=== PATIENT | female | born 1940 | race Caucasian/White ===

== ENCOUNTER 2017-01-04 10:52 | Emergency (ER) | payer MEDICARE, OTHER ==
[2017-01-04 12:16] LABS: BASOPHIL 0.3 % (0-2); EOSINOPHIL 5.7 % (0-7); HCT 42.7 % (37.0-47.0); LYMPHOCYTE 14.1 % (15-48); MCH 28.8 pg (25.0-31.0); MCHC 32.8 g/dL (32.0-36.0); MCV 87.9 fL (78.0-100.0); MONOCYTE 9.1 % (0-12); MPV 11.1 fL (6.0-9.5); NEUTROPHIL 70.8 % (41-80); PLT 234 K/uL (150-400); RBC 4.86 M/uL (4.20-5.40); RDW 14.5 % (11.5-14.0); WBC 7.4 K/uL (4.0-10.5)
[2017-01-04 12:25] LABS: ALBUMIN 3.9 g/dL (3.4-4.8); BILIRUBIN - TOTAL 0.6 mg/dL (0.1-1.0); CREATININE 0.6 mg/dL (0.5-1.0); GLOBULIN (CALCULATION) 3.9 g/dL (2.2-4.2); POTASSIUM 3.7 mmol/L (3.5-5.1); TOTAL PROTEIN 7.8 g/dL (6.4-8.3)
== END 2017-01-04 15:00 | disposition home or self-care (01) ==
LOC: FER 10:52
PROVIDERS: Emergency Medicine
DX: K86.2 Cyst of pancreas (principal); R07.81 Pleurodynia; J44.9 Chronic obstructive pulmonary disease, unspecified; Z86.711 Personal history of pulmonary embolism; Z79.52 Long term (current) use of systemic steroids; Z79.01 Long term (current) use of anticoagulants; Z79.899 Other long term (current) drug therapy
CPT/HCPCS: 36415; 80053; 82150; 83690; 85025; 93005; J2175; Q9967

== ENCOUNTER 2017-01-11 13:11 | Emergency (ER) | payer MEDICARE, OTHER ==
[2017-01-11 14:49] LABS: INR 1.32 (0.9-1.2); PROTHROMBIN TIME 15.9 SECONDS (11.7-14.0); PTT 27.5 SECONDS (23.2-31.4)
[2017-01-11 14:54] LABS: BILIRUBIN NEGATIVE (NEGATIVE); BLOOD NEGATIVE Ery/uL (NEGATIVE); CLARITY CLEAR (CLEAR); COLOR YELLOW (YELLOW); GLUCOSE (U) NORMAL (NORMAL); KETONE (U) NEGATIVE (NEGATIVE); LEUKOCYTES TRACE Leu/uL (NEGATIVE); NITRITE NEGATIVE (NEGATIVE); PROTEIN NEGATIVE (NEGATIVE); SPECIFIC GRAVITY <=1.005 (1.001-1.030); UROBILINOGEN 0.2 mg/dL (0.2-1.0)
[2017-01-11 14:55] LABS: BASOPHIL 0.5 % (0-2); EOSINOPHIL 5.3 % (0-7); HCT 40.8 % (37.0-47.0); HGB 13.6 g/dl (12.5-16.0); LYMPHOCYTE 9.3 % (15-48); MCH 29.3 pg (25.0-31.0); MCHC 33.3 g/dL (32.0-36.0); MCV 87.9 fL (78.0-100.0); MONOCYTE 7.7 % (0-12); MPV 10.1 fL (6.0-9.5); NEUTROPHIL 77.2 % (41-80); PLT 309 K/uL (150-400); RBC 4.64 M/uL (4.20-5.40); RDW 14.3 % (11.5-14.0)
[2017-01-11 14:56] LABS: LACTIC ACID 2.2 mmol/L (0.5-2.2)
[2017-01-11 14:58] LABS: WBC 8.2 K/uL (4.0-10.5)
[2017-01-11 15:00] LABS: ALBUMIN 3.7 g/dL (3.4-4.8); BILIRUBIN - TOTAL 0.2 mg/dL (0.1-1.0); CREATININE 0.5 mg/dL (0.5-1.0); GLOBULIN (CALCULATION) 3.6 g/dL (2.2-4.2); POTASSIUM 3.7 mmol/L (3.5-5.1); TOTAL PROTEIN 7.3 g/dL (6.4-8.3)
[2017-01-11 15:07] LABS: BACTERIA TRACE
== END 2017-01-11 17:14 | disposition home or self-care (01) ==
LOC: FER 13:11
PROVIDERS: Emergency Medicine
DX: K29.70 Gastritis, unspecified, without bleeding (principal); K86.2 Cyst of pancreas; I44.7 Left bundle-branch block, unspecified; J98.11 Atelectasis; R82.90 Unspecified abnormal findings in urine; J45.909 Unspecified asthma, uncomplicated; J44.9 Chronic obstructive pulmonary disease, unspecified; I73.9 Peripheral vascular disease, unspecified; Z79.01 Long term (current) use of anticoagulants; Z79.899 Other long term (current) drug therapy; Z99.81 Dependence on supplemental oxygen
CPT/HCPCS: 36415; 71010; 80053; 81001; 83605; 83690; 85025; 85610; 85730; 87040; 87088; 87339; 93005; C9113

== ENCOUNTER 2022-03-28 11:40 | Emergency (ER) | payer MEDICARE ==
[~2022-03-28 11:40] MED LIST: BENTYL PO; CARTIA XT120 MG PO; CREON DR 36,001 EACH PO; ELIQUIS5 MG PO; IMDUR 30MG TABL30 MG PO; ISOSORBIDE DINI30 MG PO; MAXZIDE 37.5 M1 EACH PO; NITROFURANTOIN100 M1 PO; NORCO 5-325 TA1 EACH PO; OFLOXACIN5 M1 EARLF; OMEPRAZOLE20 MG PO; POTASSIUM CHLO10 MEQ PO; PREDNISONE5 MG PO; PROVENTIL2 MG/5 ML PO; PROZAC20 MG PO; SYNTHROID50 MCG PO; TRAMADOL HCL50 MG PO; TYLENOL #31 EACH PO; VENTOLIN HFA IN18 GM INH
[2022-03-28 13:26] LABS: EOSINOPHIL 1.6 % (0-7); HCT 40.7 % (37.0-47.0); HGB 13.1 g/dl (12.5-16.0); LYMPHOCYTE 21.5 % (15-48); MCH 30.4 pg (25.0-31.0); MCHC 32.2 g/dL (32.0-36.0); MCV 94.4 fL (78.0-100.0); MONOCYTE 13.5 % (0-12); MPV 11.4 fL (6.0-9.5); NEUTROPHIL 60.2 % (41-80); NRBC 0; PLT 170 K/uL (150-400); RBC 4.31 M/uL (4.20-5.40); RDW 13.8 % (11.5-14.0)
[2022-03-28 13:35] LABS: INR 1.22 (0.9-1.2); PTT 29.1 SECONDS (24.9-34.6)
[2022-03-28 13:46] LABS: ALBUMIN 3.7 g/dL (3.4-5.0); BILIRUBIN - TOTAL 0.5 mg/dL (0.2-1.0); CREATININE 0.91 mg/dL (0.51-0.95); GLOBULIN (CALCULATION) 2.9 g/dL; POTASSIUM 3.8 mmol/L (3.5-5.1); TOTAL PROTEIN 6.6 g/dL (6.4-8.2)
[2022-03-28 13:58] LABS: LACTIC ACID 0.7 mmol/L (0.4-1.9)
[2022-03-28 16:21] LABS: BILIRUBIN NEGATIVE (NEGATIVE); BLOOD 2+ Ery/uL (NEGATIVE); CLARITY CLEAR (CLEAR); COLOR YELLOW (YELLOW); GLUCOSE (U) NORMAL (NORMAL); LEUKOCYTES TRACE Leu/uL (NEGATIVE); NITRITE NEGATIVE (NEGATIVE); PROTEIN NEGATIVE (NEGATIVE); UROBILINOGEN 0.2 mg/dL (0.2-1.0)
[2022-03-28 16:46] LABS: BACTERIA 1+
[2022-03-28] MEDS ORDERED: NORCO 5-325 TA1 EACH PO (19:01)
[2022-03-28] MEDS ORDERED: PAXLOVID 300-11 EACH PO (19:07)
== END 2022-03-28 21:59 | disposition home or self-care (01) ==
LOC: FER 11:40
PROVIDERS: Emergency Medicine
DX: S32.028A Other fracture of second lumbar vertebra, initial encounter for closed fracture (principal); U07.1 COVID-19; J44.9 Chronic obstructive pulmonary disease, unspecified; Z88.2 Allergy status to sulfonamides; W19.XXXA Unspecified fall, initial encounter
CPT/HCPCS: 36415; 36600; 70450; 71250; 72131; 80053; 81001; 82803; 83605; 84145; 85025; 85610; 85730; 87040; 87088; 93005; J1170; J2270; J2405; J7040; U0002